=== PATIENT | male | born 1985 | race African-American/Black ===

== ENCOUNTER 2022-02-25 21:56 | Emergency (ER) | payer OTHER ==
[~2022-02-25] VITALS: Ht 180.3 cm; Wt 222.3 kg
[2022-02-25 22:06] VITALS: BP 153/103
--- NOTE | 2022-02-25 22:37 | NUR ---
Patient ambulated to bed 8.
--- NOTE | 2022-02-25 22:41 | NUR ---
PATIENT AMBULATED TO THE RR
--- NOTE | 2022-02-25 22:42 | NUR ---
DEBORAH AMBULATED BACK TO BED 8
--- NOTE | 2022-02-25 22:50 | NUR ---
37/M BIB SELF C/C RIGHT UPPER ABD PAIN RAD TO RIGHT LOWER BACK X2HRS AGO. PER PATIENT PAIN IS CONSTANT AND SHARP 05/12. STATED "I HAD AN EPISODE OF VOMITING AFTER EATING MEAL. I HOPE I DONT HAVE A BLOOD CLOT AGAIN, ALTHOUGH IT DOESNT FEEL LIKE IT. IM JUST CONCERNED. AND I AM HAVING TROUBLE CATCHING HIS BREATHE DUE TO PAIN." PER PATIENT HE TOOK TUMS, NO OTHER MEDS TAKEN. PATIENT RESTING IN BED WITH EYES CLOSE. 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 RR APPEAR TO BE EVEN AND UNLABORED. NO ACCESSORY MUSCLE USE. APPEAR TO BE IN DISTRESS DUE TO PAIN. SKIN WNL TO ETHNICITY. CAP REFILL <2 SECS. PLACED IN BED . BED LOW AND LOCKED. SIDE RAIL UP FOR SAFETY. ALL NEEDS MET PMHX BLOOD CLOTS MEDS VALENTIN ARIAS
--- NOTE | 2022-02-25 23:10 | NUR ---
Patient being evaluated by physician at bedside.
[2022-02-25] MEDS: KETOROLAC 15 MG/ML VIAL IM ONE (23:28)
--- NOTE | 2022-02-25 23:31 | NUR ---
PATIENT RUQ PAIN 10/10, MEDICATED PER ORDERS.
--- NOTE | 2022-02-25 23:50 | NUR ---
US AT BEDSIDE
[2022-02-26 00:40] LABS: BASOPHILS % (AUTO) 0.4 % (0.0-2.0); EOSINOPHILS # (AUTO) 0.2 K/uL (0-0.4); EOSINOPHILS % (AUTO) 1.9 % (0.0-4.0); HEMATOCRIT 45.1 % (36-52); HEMOGLOBIN 14.7 g/dL (12.0-18.0); LYMPHOCYTES # (AUTO) 1.8 K/uL (2.0-11.5); LYMPHOCYTES % (AUTO) 20.6 % (20.5-51.1); MEAN CORPUSCULAR HEMOGLOBIN 28 pg (27-31); MEAN CORPUSCULAR HGB CONC 33 g/dL (33-37); MEAN CORPUSCULAR VOLUME 84.3 fL (80-94); MONOCYTES # (AUTO) 0.7 K/uL (0.8-1.0); MONOCYTES % (AUTO) 7.5 % (1.7-9.3); NEUTROPHILS # (AUTO) 6.2 K/uL (1.8-7.7); NEUTROPHILS % (AUTO) 69.6 % (42.2-75.2); PLATELET COUNT (AUTO) 425 K/uL (140-450); RED BLOOD CELL COUNT(AUTO) 5.35 MIL/uL (4.20-6.10); RED CELL DISTRIBUTION WIDTH 15.1 % (11.6-13.7); WHITE BLOOD COUNT (AUTO) 8.9 K/uL (4.8-10.8)
[2022-02-26 01:12] LABS: ALBUMIN 3.4 g/dL (3.4-5.0); ANION GAP 14.9 (8-16); CARBON DIOXIDE 25.3 mmol/L (21-32); CREATININE 1.3 mg/dL (0.6-1.3); POTASSIUM 4.2 mmol/L (3.5-5.1); TOTAL BILIRUBIN 0.4 mg/dL (0.0-1.0)
--- NOTE | 2022-02-26 02:26 | NUR ---
PATIENT IS RESTING IN BED WITH EYES CLOSED. RR APPEAR TO BE EVEN AND UNLABORED. DOESNT APPEART TO BE IN PAIN OR DISTRESS AT THIS TIME. ALL NEEDS MET
--- NOTE | 2022-02-26 02:50 | NUR ---
Patient being evaluated by physician at bedside.
[2022-02-26 02:57] VITALS: BP 148/100
--- NOTE | 2022-02-26 02:57 | NUR ---
Patient discharged with v/s stable. Written and verbal after care instructions given and explained. Patient verbalized understanding. Ambulatory with steady gait. All questions addressed prior to discharge. Advised to follow up with PMD.
== END 2022-02-26 04:07 | disposition home or self-care (01) ==
LOC: MED 21:56
DX: K80.50 Calculus of bile duct without cholangitis or cholecystitis without obstruction (principal); R11.2 Nausea with vomiting, unspecified
CPT/HCPCS: 36415; 76705; 80053; 81002; 83605; 83690; 85025; 96372; 99284; J1885; Q0092